=== PATIENT | male | born 1940 | race Caucasian/White ===

== ENCOUNTER 2021-11-14 11:49 | Day surgery (SDC) | payer OTHER ==
[~2021-11-14] VITALS: Ht 170.2 cm; Wt 68.7 kg
[~2021-11-14 11:49] MED LIST: ALBU90OI INH; ASPI81CH PO; CIPR500 PO; FLUSAL2505 INH; FLUT1DIS5 INH; IPRAT-ALBUT 0.5-3 ML INH; METR500 PO; OXYACE5T PO
== END 2021-11-14 13:16 | disposition home or self-care (01) ==
LOC: ORSCSDS 11:49
PROVIDERS: Surgery
PROC: 0DBL8ZX Excision of Transverse Colon, Via Natural or Artificial Opening Endoscopic, Diagnostic (ICD-10-PCS; principal; 2021-11-14 13:00)
DX: Z12.11 Encounter for screening for malignant neoplasm of colon (principal); Z85.038 Personal history of other malignant neoplasm of large intestine; K51.40 Inflammatory polyps of colon without complications; J44.9 Chronic obstructive pulmonary disease, unspecified; Z87.891 Personal history of nicotine dependence; Z79.82 Long term (current) use of aspirin; Z79.899 Other long term (current) drug therapy
CPT/HCPCS: 88305; J2704; J7120

== ENCOUNTER 2022-12-16 08:49 | Emergency (ER) | payer OTHER ==
[~2022-12-16] VITALS: Ht 172.7 cm; Wt 72.6 kg
[2022-12-16 11:00] VITALS: BP 154/82
[2022-12-16] MEDS ORDERED: BISA5EC PO (11:59)
[2022-12-16] MEDS ORDERED: MAGCIT300 PO (11:59)
[2022-12-16] MEDS ORDERED: ADULT GLYCERIN1 EACH PR (11:59)
== END 2022-12-16 12:15 | disposition home or self-care (01) ==
LOC: ER 08:49
DX: K59.00 Constipation, unspecified (principal); Z85.038 Personal history of other malignant neoplasm of large intestine; Z87.891 Personal history of nicotine dependence
CPT/HCPCS: 96374; 96375; 96376; 99283-25; A9270; J2060; J2405; J3010

== ENCOUNTER 2023-07-05 11:50 | Emergency (ER) | payer OTHER ==
[~2023-07-05] VITALS: Ht 175.3 cm; Wt 70.3 kg
[~2023-07-05 11:50] MED LIST changes: +ADULT GLYCERIN1 EACH PR; +BISA5EC PO; +MAGCIT300 PO
[2023-07-05 12:36] LABS: BASOPHILS ABSOLUTE AUTO 0.02 K/mm3 (0.00-0.23); BASOPHILS PERCENT AUTO 0 % (0-2); EOSINOPHILS ABSOLUTE AUTO 0.01 K/mm3 (0.00-0.68); EOSINOPHILS PERCENT AUTO 0 % (0-6); Hematocrit 39.3 % (37.0-53.0); Hemoglobin 13.4 g/dL (13.5-17.5); IMMATURE GRAN ABSOLUTE AUTO 0.04 K/mm3 (0.00-0.10); IMMATURE GRAN PERCENT AUTO 0 % (0-1); LYMPHOCYTES ABSOLUTE AUTO 0.68 K/mm3 (0.84-5.20); LYMPHOCYTES PERCENT AUTO 7 % (21-46); MONOCYTES ABSOLUTE AUTO 1.08 K/mm3 (0.16-1.47); MONOCYTES PERCENT AUTO 11 % (4-13); Mean Corpuscular HGB 32.6 pg (26.0-34.0); Mean Corpuscular HGB Conc 34.1 g/dL (31.5-36.5); Mean Corpuscular Volume 96 fL (80-100); Mean Platelet Volume 11.4 fL (9.1-12.4); NEUTROPHILS ABSOLUTE AUTO 7.89 K/mm3 (1.96-9.15); NEUTROPHILS PERCENT AUTO 81 % (41-73); Platelet Count 241 K/mm3 (150-400); RDW Coefficient Variation 12.8 % (11.7-14.2); RDW Standard Deviation 45.6 fL (35.1-46.3); Red Blood Cell Count 4.11 M/mm3 (4.30-5.90); White Blood Cell Count 9.72 K/mm3 (4.00-11.30)
[2023-07-05 12:48] LABS: Albumin/Globulin Ratio 0.7 (0.8-1.8); Bilirubin, Total 0.7 mg/dL (0.1-1.0); Calcium, Blood 8.9 mg/dL (8.5-10.1); Globulin, Blood 4.1 g/dL (2.2-4.0); Potassium, Blood 3.9 mmol/L (3.5-5.5); Total Protein, Blood 7.1 g/dL (6.4-8.2)
[2023-07-05 13:58] LABS: Influenza A, PCR NEGATIVE (NEGATIVE); Influenza B, PCR NEGATIVE (NEGATIVE); Resp Syncytial Virus, PCR NEGATIVE (NEGATIVE); SARS-Cov-2 (COVID-19) PCR, MMC NEGATIVE (NEGATIVE)
[2023-07-05] MEDS ORDERED: Doxycycline Hyclate 100 MG TAB PO ONE (14:50)
[2023-07-05] MEDS ORDERED: Amoxicillin/Clavulanate K 875 MG Tab PO ONE (14:50)
[2023-07-05 16:00] VITALS: BP 160/70
[2023-07-05] MEDS ORDERED: DOXY100 PO (16:01)
[2023-07-05] MEDS ORDERED: AMOCLA875 PO (16:01)
== END 2023-07-05 16:20 | disposition home or self-care (01) ==
LOC: ER 11:50
PROVIDERS: Emergency Medicine
DX: J18.9 Pneumonia, unspecified organism (principal); R09.02 Hypoxemia; J44.9 Chronic obstructive pulmonary disease, unspecified; Z79.51 Long term (current) use of inhaled steroids; Z79.899 Other long term (current) drug therapy; Z87.891 Personal history of nicotine dependence
CPT/HCPCS: 0241U; 71046; 80053; 84145; 84484; 85025; 93005; 93010; 99285-25; A9270

== ENCOUNTER 2023-09-20 09:29 | Inpatient (IN) | payer OTHER ==
[~2023-09-20] VITALS: Ht 170.2 cm; Wt 68.0 kg
[~2023-09-20 09:29] MED LIST changes: +AMOCLA875 PO; +DOXY100 PO
[2023-09-20] MEDS ORDERED: Albuterol 2.5 MG/3 ML VIAL INH SCH (09:35)
[2023-09-20 09:46] LABS: Base Excess Venous 0.7 mmol/L; Bicarbonate Venous 24.9 mmol/L (24.0-30.0); PCO2 Venous 40.9 mmHg (38-42)
[2023-09-20 09:48] LABS: BASOPHILS ABSOLUTE AUTO 0.03 K/mm3 (0.00-0.23); BASOPHILS PERCENT AUTO 0 % (0-2); EOSINOPHILS ABSOLUTE AUTO 0.02 K/mm3 (0.00-0.68); EOSINOPHILS PERCENT AUTO 0 % (0-6); Hematocrit 38.5 % (37.0-53.0); Hemoglobin 12.4 g/dL (13.5-17.5); IMMATURE GRAN ABSOLUTE AUTO 0.04 K/mm3 (0.00-0.10); IMMATURE GRAN PERCENT AUTO 0 % (0-1); LYMPHOCYTES ABSOLUTE AUTO 1.08 K/mm3 (0.84-5.20); LYMPHOCYTES PERCENT AUTO 9 % (21-46); MONOCYTES ABSOLUTE AUTO 1.31 K/mm3 (0.16-1.47); MONOCYTES PERCENT AUTO 10 % (4-13); Mean Corpuscular HGB Conc 32.2 g/dL (31.5-36.5); Mean Corpuscular Volume 96 fL (80-100); Mean Platelet Volume 10.7 fL (9.1-12.4); NEUTROPHILS PERCENT AUTO 80 % (41-73); Platelet Count 264 K/mm3 (150-400); RDW Coefficient Variation 14.6 % (11.7-14.2); RDW Standard Deviation 51.4 fL (35.1-46.3); White Blood Cell Count 12.58 K/mm3 (4.00-11.30)
[2023-09-20 10:16] LABS: Albumin, Blood 3.6 g/dL (3.4-5.0); Albumin/Globulin Ratio 0.9 (0.8-1.8); Bilirubin, Total 0.7 mg/dL (0.1-1.0); Calcium, Blood 9.6 mg/dL (8.5-10.1); Creatinine, Blood 0.83 mg/dL (0.60-1.20); Globulin, Blood 4.2 g/dL (2.2-4.0); Potassium, Blood 4.3 mmol/L (3.5-5.5); Total Protein, Blood 7.8 g/dL (6.4-8.2)
[2023-09-20] MEDS ORDERED: Azithromycin 500 MG in NS 250 ML IV ONE (10:20)
[2023-09-20] MEDS ORDERED: CefTRIAXone Sodium 1,000 MG in NS 100 ML IV ONE (10:20)
[2023-09-20] MEDS ORDERED: NS 1,000 ML IV SCH (10:45)
[2023-09-20 11:24] LABS: Influenza A, PCR NEGATIVE (NEGATIVE); Influenza B, PCR NEGATIVE (NEGATIVE); Resp Syncytial Virus, PCR NEGATIVE (NEGATIVE); SARS-Cov-2 (COVID-19) PCR, MMC NEGATIVE (NEGATIVE)
[2023-09-20] MEDS ORDERED: Ondansetron HCl 2 MG / ML 2ML Vial IV PRN (13:45)
[2023-09-20] MEDS ORDERED: Acetaminophen 325 MG TABLET PO PRN (13:50)
[2023-09-20] MEDS ORDERED: MethylPREDNISolone Sod Succ 40 MG VIAL IV SCH (16:00)
[2023-09-20 16:28] VITALS: BP 145/73
--- NOTE | 2023-09-20 17:06 | NUR ---
ER ADMIT Patient alert & oriented x4, stand pivot- weakness & SOB. Patient has history of COPD, reports he has oxygen tank and home but refuses to use it. Only home med is advir inhaler. Lungs diminished w/ wheezing t/o. Sats stable with 2lpm. Vitals stable. ECHO done in ER, resulting pending. Will continue plan of care.
[2023-09-20] MEDS ORDERED: MethylPREDNISolone Sod Succ 40 MG VIAL IV ONE (17:35)
[2023-09-20 19:46] VITALS: BP 137/61
[2023-09-20] MEDS ORDERED: Mometasone/Formoterol MDI 200/5 mcg 13 GM INH SCH (21:15)
[2023-09-21 03:23] VITALS: BP 132/59
--- NOTE | 2023-09-21 04:53 | NUR ---
SHIFT SUMMARY PT ON 3L NC. STATES BASELINE IS 2LPM NEEDED VIA NASAL CANNULA AT HOME. HX COPD. STAND-BY ASSIST TO BATHROOM. AT BEDSIDE. NO EVENTS OVERNIGHT. RESTING COMFORTABLY IN BED, HOB SLIGHTLY ELEVATED, CALL LIGHT IN REACH. RESPIRATIONS EVEN AND UNLABORED.
[2023-09-21 05:07] LABS: BASOPHILS ABSOLUTE AUTO 0.01 K/mm3 (0.00-0.23); BASOPHILS PERCENT AUTO 0 % (0-2); EOSINOPHILS PERCENT AUTO 0 % (0-6); IMMATURE GRAN ABSOLUTE AUTO 0.03 K/mm3 (0.00-0.10); IMMATURE GRAN PERCENT AUTO 0 % (0-1); LYMPHOCYTES ABSOLUTE AUTO 0.71 K/mm3 (0.84-5.20); LYMPHOCYTES PERCENT AUTO 8 % (21-46); MONOCYTES ABSOLUTE AUTO 0.13 K/mm3 (0.16-1.47); MONOCYTES PERCENT AUTO 2 % (4-13); Mean Corpuscular HGB 30.8 pg (26.0-34.0); Mean Corpuscular HGB Conc 32.4 g/dL (31.5-36.5); Mean Corpuscular Volume 95 fL (80-100); NEUTROPHILS ABSOLUTE AUTO 7.64 K/mm3 (1.96-9.15); NEUTROPHILS PERCENT AUTO 90 % (41-73); Platelet Count 242 K/mm3 (150-400); RDW Coefficient Variation 14.5 % (11.7-14.2); RDW Standard Deviation 50.9 fL (35.1-46.3); Red Blood Cell Count 3.57 M/mm3 (4.30-5.90); White Blood Cell Count 8.52 K/mm3 (4.00-11.30)
[2023-09-21 05:55] LABS: Albumin/Globulin Ratio 0.8 (0.8-1.8); Bilirubin, Total 0.5 mg/dL (0.1-1.0); Bun/Creatinine Ratio 25.8 (12.0-20.0); Creatinine, Blood 0.85 mg/dL (0.60-1.20); Globulin, Blood 3.9 g/dL (2.2-4.0); Magnesium, Blood 2.4 mg/dL (1.6-2.4); Potassium, Blood 4.5 mmol/L (3.5-5.5); Total Protein, Blood 6.9 g/dL (6.4-8.2)
[2023-09-21 07:36] VITALS: BP 143/72
[2023-09-21] MEDS ORDERED: Enoxaparin 40 MG/0.4 ML SYR SC SCH (09:00)
[2023-09-21 11:30] LABS: Adenovirus Not Detected (NOT DETECT); Bordetella pertussis Not Detected (NOT DETECT); Chlamydophila pneumoniae Not Detected (NOT DETECT); Coronavirus 229E Not Detected (NOT DETECT); Coronavirus HKU1 Not Detected (NOT DETECT); Coronavirus NL63 Not Detected (NOT DETECT); Coronavirus OC43 Not Detected (NOT DETECT); Human Metapneumovirus Not Detected (NOT DETECT); Human Rhinovirus/Enterovirus Not Detected (NOT DETECT); Influenza A/2009-H1 Not Detected (NOT DETECT); Influenza A/H1 Not Detected (NOT DETECT); Influenza A/H3 Not Detected (NOT DETECT); Influenza B Not Detected (NOT DETECT); Mycoplasma pneumoniae Not Detected (NOT DETECT); Parainfluenza Virus 1 Not Detected (NOT DETECT); Parainfluenza Virus 2 Not Detected (NOT DETECT); Parainfluenza Virus 3 Not Detected (NOT DETECT); Parainfluenza Virus 4 Not Detected (NOT DETECT); Respiratory Syncytial Virus Not Detected (NOT DETECT); SARS-Cov-2 (COVID-19), BioFire Not Detected (NOT DETECT)
[2023-09-21] MEDS ORDERED: CefTRIAXone Sodium 1,000 MG in NS 100 ML IV SCH (14:30)
[2023-09-21] MEDS ORDERED: NS 250 ML IV PRN (14:50)
[2023-09-21] MEDS ORDERED: Azithromycin 250 MG Tab PO SCH (15:00)
[2023-09-21 16:02] VITALS: BP 134/68
--- NOTE | 2023-09-21 16:53 | NUR ---
SHIFT SUMMARY: NO ACUTE EVENTS. ON O2 @ 2 L/MIN NC WITH O2 SAT > 90%. HAVING OCC PRODUCTIVE COUGH, SPUTUM NOT OBSERVED. EDUCATED ABOUT SIDE EFFECTS OF STEROIDS, VERBALIZED UNDERSTANDING. APPETITE IS GOOD. AT BEDSIDE CONTINUOUSLY. PLAN IS LIKELY D/C TOMORROW.
[2023-09-21 19:30] VITALS: BP 149/77
[2023-09-22 03:07] VITALS: BP 134/70
--- NOTE | 2023-09-22 04:10 | NUR ---
SHIFT SUMMARY SOFYA WAS ALERT AND FULLY ORIENTED ON ASSESSMENT WITH AT BEDSIDE. PT H&H IS NOTABLY REDUCED FROM PREVIOUS DAY, BUT STILL WELL ABOVE CRITICAL RANGE. NO ACUTE EVENTS, NO CHANGES TO PT CONDITION, PT RESTING IN BED AT LOW POSITION WITH CALL LIGHT IN REACH
[2023-09-22 05:47] LABS: BASOPHILS ABSOLUTE AUTO 0.01 K/mm3 (0.00-0.23); BASOPHILS PERCENT AUTO 0 % (0-2); EOSINOPHILS PERCENT AUTO 0 % (0-6); Hematocrit 35.3 % (37.0-53.0); Hemoglobin 11.5 g/dL (13.5-17.5); IMMATURE GRAN ABSOLUTE AUTO 0.07 K/mm3 (0.00-0.10); IMMATURE GRAN PERCENT AUTO 1 % (0-1); LYMPHOCYTES ABSOLUTE AUTO 0.66 K/mm3 (0.84-5.20); LYMPHOCYTES PERCENT AUTO 5 % (21-46); MONOCYTES ABSOLUTE AUTO 0.32 K/mm3 (0.16-1.47); MONOCYTES PERCENT AUTO 2 % (4-13); Mean Corpuscular HGB Conc 32.6 g/dL (31.5-36.5); Mean Corpuscular Volume 95 fL (80-100); Mean Platelet Volume 10.9 fL (9.1-12.4); NEUTROPHILS ABSOLUTE AUTO 12.53 K/mm3 (1.96-9.15); NEUTROPHILS PERCENT AUTO 92 % (41-73); Platelet Count 261 K/mm3 (150-400); RDW Coefficient Variation 14.6 % (11.7-14.2); RDW Standard Deviation 50.5 fL (35.1-46.3); Red Blood Cell Count 3.71 M/mm3 (4.30-5.90); White Blood Cell Count 13.59 K/mm3 (4.00-11.30)
[2023-09-22 06:18] LABS: Albumin, Blood 3.1 g/dL (3.4-5.0); Albumin/Globulin Ratio 0.8 (0.8-1.8); Bilirubin, Total 0.2 mg/dL (0.1-1.0); Bun/Creatinine Ratio 31.9 (12.0-20.0); Calcium, Blood 9.1 mg/dL (8.5-10.1); Creatinine, Blood 0.85 mg/dL (0.60-1.20); Globulin, Blood 3.9 g/dL (2.2-4.0)
[2023-09-22 07:51] VITALS: BP 142/62
[2023-09-22] MEDS ORDERED: Zithromax500 MG PO (10:57)
[2023-09-22] MEDS ORDERED: PRED20 PO (10:58)
--- NOTE | 2023-09-22 12:35 | NUR ---
PATIENT DISCHARGED TO HOME ACCOMPANIED BY HIS . IV SALINE LOCK REMOVED WITHOUT INCIDENT. BOTH VERBALIZED UNDERSTANDING OF D/C INSTRUCTIONS. OFF UNIT VIA W/C AT 1207. NO PERSONAL BELONNINGS LEFT BEHIND IN ROOM.
== END 2023-09-22 12:10 | disposition home or self-care (01) | DRG 189 ==
LOC: ER 09:29 → MEDS 16:10 → ENPENDDIS 09-22 10:44 → MEDS 09-22 12:10
PROVIDERS: Emergency Medicine; ADMIT Internal Medicine
DX: J96.01 Acute respiratory failure with hypoxia (principal); J44.1 Chronic obstructive pulmonary disease with (acute) exacerbation; R04.2 Hemoptysis; J20.9 Acute bronchitis, unspecified; M25.511 Pain in right shoulder; J43.9 Emphysema, unspecified; Z79.51 Long term (current) use of inhaled steroids; Z85.038 Personal history of other malignant neoplasm of large intestine; Z87.19 Personal history of other diseases of the digestive system; Z90.49 Acquired absence of other specified parts of digestive tract; Z87.891 Personal history of nicotine dependence
CPT/HCPCS: 0202U; 0241U; 36415; 71045; 71260; 80053; 82803; 83605; 83735; 83880; 84145; 84484; 85025; 87040; 93005; 93010; 93306; 94640; 94644; 94664; 94760; 96365-59; 96367-59; 99291-25; A9270; J0456; J0696; J2920; J7030; J7050; Q9967